=== PATIENT | male | born 1965 | race Caucasian/White ===

== ENCOUNTER 2017-04-03 10:38 | Emergency (ER) | payer SELFPAY ==
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
[2017-04-03 11:12] VITALS: BP 144/83
== END 2017-04-03 12:06 | disposition home or self-care (01) ==
LOC: ER 10:38
DX: M25.512 Pain in left shoulder (principal); W17.89XA Other fall from one level to another, initial encounter; Y93.89 Activity, other specified; Y92.9 Unspecified place or not applicable; E03.9 Hypothyroidism, unspecified; F17.200 Nicotine dependence, unspecified, uncomplicated